=== PATIENT | male | born 1950 | race African-American/Black ===

== ENCOUNTER 2023-09-20 09:06 | Outpatient (CLI) | payer MEDICARE, BC, SELFPAY ==
--- NOTE | ~2023-09-20 | NM_ITS ---
EXAMINATION: NM vick stress w perfusion DATE: 09/20/2023 11:32 INDICATION: Angina pectoris TECHNIQUE: Rest images were obtained following intravenous administration of 9.9 mCi Tc99m tetrofosmi n (Myoview). The patient was infused intravenously with Lexiscan (Regadenoson). Then, 31.9 mCi Tc99m tetrofosmin (Myoview) was administered intravenously, and stress images were obtained. Data was recon structed into short axis and horizontal and vertical long axis SPECT images. Gated SPECT images were also obtained. COMPARISON: None. FINDINGS: There is no definite reversible or fixed perfusion abnormality to suggest ischemia or infar ction. There is normal left ventricular chamber size, wall motion and ejection fraction. Left ventr icular ejection fraction measures 62%. IMPRESSION: 1. Normal myocardial perfusion at rest and during stress. 2. Left ventricular ejection fraction measuring 62%. Reviewed, dictated and finalized at location A. NT [employer]GER
--- NOTE | 2023-09-20 09:21 | EST_ITS ---
Patient Info Name: Jesus Mendez Age: 73 years : 1950 Gender: Male Ht: 71 in Wt: 212 lbs BSA: 2.22 m2 HR: 75 bpm BP: 167 / 76 mmHg Heart Rhythm: Sinus Rhythm Exam Date: 09/20/2023 10:47 AM Exam Location: [facility] Patient Status: Outpatient Admit Date: 09/20/2023 Staff Ordering Physician: Jean Flores MD Attending Provider: Jean Flores MD Exercise Technologist: Rachelle Alicea CT Exercise Physician: Jason Pittman DO Exam Type: CA stress vick w NM Study Info Indications I20.8 - Other forms of angina pectoris A regadenoson stress test was performed. Summary 1. 1. Negative lexiscan stress test for ischemic ST changes by ECG criteria. 2. 2. Baseline hypertension. 3. 3. Nuclear scan to follow and will be reported separately. Please correlate with it. 4. 4. Patient informed of the above results. Protocol: Lexiscan Stress ECG Details Stage: REST Duration (min): 3 min : 18 sec HR (bpm): 77 SBP (mmHg): 167 DBP (mmHg): 76 Stage: REST Duration (min): 9 min : 20 sec HR (bpm): 75 SBP (mmHg): 167 DBP (mmHg): 76 Stage: STAGE 1 Duration (min): 0 min : 59 sec HR (bpm): 103 SBP (mmHg): 164 DBP (mmHg): 47 Stage: RECOVERY Duration (min): 1 min : 0 sec HR (bpm): 100 SBP (mmHg): 164 DBP (mmHg): 47 Stage: RECOVERY Duration (min): 2 min : 0 sec HR (bpm): 93 SBP (mmHg): 164 DBP (mmHg): 47 Stage: RECOVERY Duration (min): 3 min : 0 sec HR (bpm): 89 SBP (mmHg): 163 DBP (mmHg): 66 Stage: RECOVERY Duration (min): 3 min : 55 sec HR (bpm): 88 SBP (mmHg): 163 DBP (mmHg): 66 Rest HR: 75 bpm Peak HR: 105 bpm Rest Sys BP: 167 mmHg Peak Sys BP: 164 mmHg Max Pred HR: 148 bpm % Max Pred HR: 71 % Target HR: 126 bpm Max RPP: 17,220 bpm*mmHg Termination Reason: Completed protocol Cardiac Symptoms: Shortness of breath Total Time: 1 min : 0 sec Rest Parikh BP: 76 mmHg Peak Parikh BP: 47 mmHg Total Dose: 0.4 mg Resting ECG Sinus rhythm, ST-T wave abnormality in diffuse leads- consider ischemia. Stress ECG No ST changes. Arrhythmias None. Report Signatures
== END 2023-09-20 09:07 | disposition home or self-care (01) ==
LOC: ANHCARD 09:07
PROVIDERS: PCP Emergency Medicine; Visit Provider Emergency Medicine
DX: I20.89 Other forms of angina pectoris (principal); E11.9 Type 2 diabetes mellitus without complications; I10 Essential (primary) hypertension
CPT/HCPCS: 78452; 93017; A9502; J2785

== ENCOUNTER 2024-11-13 11:10 | Outpatient (CLI) | payer BC, MEDICARE, SELFPAY ==
--- OUTSIDE RECORDS SUMMARY | 2024-11-13 12:28 | XMS_ITS | Data Portability ---
Author Organization [facility], Main Office Address [address] [place] [address] Assessment No assessment recorded. Plan of Treatment Reminders Order Date Submit Date Provider Last Modified By Organization Details Last Modified Time Details Appointments None recorded. Lab hemoglobin A1C, fingerstick [address] Narc[address], [place], [address], 3 12:32:30 PSA, total, serum or plasma 2022 023 [email or web address] [facility], [facility] [address], [address], 3 08:14:58 hemoglobin A1C, fingerstick [address] Narciso [address]les, [place], [address], 3 12:27:17 CMP, serum or plasma 2022 023 [email or web address] [facility], [facility] [address], [address], 3 08:14:57 lipid panel, serum 2022 023 [email or web address] [facility], [facility] [address], [address], 3 08:14:58 microalbumi n, urine 2022 023 [email or web address] [facility], [facility] N[address] Olivia [address] [place] [address], [address], 3 08:14:58 TSH, ultra-sensi tive, serum 2022 023 [email or web address] [facility], [address] [facility] [address], [place], [address], 3 08:14:58 Referral None recorded. Procedures None recorded. Surgeries None recorded. Imaging None recorded. Medication Orders Ozempic 2 mg/dose (8 mg/3 mL) subcutaneou s pen injector 2022 023 [facility][id number], 2 [facility], [place], [place], [id number], 3 12:18:31 pravastatin 80 mg tablet [address] [id number], 2 [facility], [place], [place], [id number], 3 12:19:47 Ozempic 1 mg/dose (4 mg/3 mL) subcutaneou s pen injector 2022 023 [email or web address] 3 [facility] #[id number], 2 [facility], [place], [place], [id number], 3 12:20:51 Patient TargetsNo targets recorded. Patient InstructionsNo instructions recorded. Reason for Referral None Reported. Results Created Date Observation Date Name Description Value Unit Range Abnormal Flag Note LastModifiedBy Organization Detail LastModifiedTime 01/19/20 22 01/18/2022 hemog lobin A1C, finge rstic k HgbA1C 8.9 Not Available [facility] [address], [place], [address], 01/18/2022 12:38:26 04/26/20 22 04/26/2022 hemog lobin A1C, finge rstic k HgbA1C 8.4 Not Available [facility] [address], [place], [address], 04/26/2022 12:23:31 08/10/19 23 08/10/2022 hemog lobin A1C, finge rstic k HgbA1C 8.3% Not Available [facility] [address], [place], [address], 08/10/2022 06:12:38 11/11/19 23 11/10/2022 hemog lobin A1C, finge rstic k HgbA1C 7.6 Not Available [address]arc[address] A, [place], [address], 11/10/2022 12:20:24 02/23/20 23 02/23/2023 COMP. METAB OLIC PANEL (14) glucose 170 mg/dL 70-99 above high normal Not Available [facility] ([facility]) [address] [place], [address], 02/23/2023 09:44:57 02/23/20 23 02/23/2023 COMP. METAB OLIC PANEL (14) BUN 16 mg/dL 8-27 Not Available [facility] ([facility]) [address] [place], [address], 02/23/2023 09:44:57 02/23/20 23 02/23/2023 COMP. METAB OLIC PANEL (14) creatinine 1.01 mg/dL 0.76-1 .27 Not Available [facility] ([facility]) [address] [place], [address], 02/23/2023 09:44:57 02/23/20 23 02/23/2023 COMP. METAB OLIC PANEL (14) eGFR 80 mL/mi n/1.7 3 >59 Not Available [facility] ([facility]) [address] [facility] [place], [address], 02/23/2023 09:44:57 02/23/20 23 02/23/2023 COMP. METAB OLIC PANEL (14) BUN/creatini ne ratio 16 10-24 Not Available [facility] [address] [facility], [place], [address], 02/23/2023 09:44:57 02/23/20 23 02/23/2023 COMP. METAB OLIC PANEL (14) sodium 138 mmol/ L 134-14 4 Not Available [facility] ([facility]) [address] [facility] [place], [address], 02/23/2023 09:44:57 02/23/20 23 02/23/2023 COMP. METAB OLIC PANEL (14) potassium 3.9 mmol/ L 3.5-5. 2 Not Available [facility] ([facility]) [address] [facility], [place], [address], 02/23/2023 09:44:57 02/23/20 23 02/23/2023 COMP. METAB OLIC PANEL (14) chloride 102 mmol/ L 96-106 Not Available [facility] ([facility]) [address] [facility], [place], [address], 02/23/2023 09:44:57 02/23/20 23 02/23/2023 COMP. METAB OLIC PANEL (14) carbon dioxide, total 22 mmol/ L 20-29 Not Available [facility] ([facility]) [address] [facility], [place], [address], 02/23/2023 09:44:57 02/23/20 23 02/23/2023 COMP. METAB OLIC PANEL (14) calcium 8.9 mg/dL 8.6-10 .2 Not Available [facility] ([facility]) [address] [facility] [place], [address], 02/23/2023 09:44:57 02/23/20 23 02/23/2023 COMP. METAB OLIC PANEL (14) protein, total 7.3 g/dL 6.0-8. 5 Not Available [facility] ([facility]) [address], [place], [address], 02/23/2023 09:44:57 02/23/20 23 02/23/2023 COMP. METAB OLIC PANEL (14) albumin 4.2 g/dL 3.8-4. 8 Not Available [facility] ([facility]) [address], [place], [address], 02/23/2023 09:44:57 02/23/20 23 02/23/2023 COMP. METAB OLIC PANEL (14) globulin, total 3.1 g/dL 1.5-4. 5 Not Available [facility] ([facility]) [address] [facility] [place], [address], 02/23/2023 09:44:57 02/23/20 23 02/23/2023 COMP. METAB OLIC PANEL (14) A/G ratio 1.4 1.2-2. 2 Not Available [facility] ([facility]) [address] [facility], [place], [address], 02/23/2023 09:44:57 02/23/20 23 02/23/2023 COMP. METAB OLIC PANEL (14) bilirubin, total 0.5 mg/dL 0.0-1. 2 Not Available [facility] ([facility]) [address] [facility], [place], [address], 02/23/2023 09:44:57 02/23/20 23 02/23/2023 COMP. METAB OLIC PANEL (14) alkaline phosphatase 99 IU/L 44-121 Not Available [facility] [address] [facility], [place], [address], 02/23/2023 09:44:57 02/23/20 23 02/23/2023 COMP. METAB OLIC PANEL (14) AST (SGOT) 25 IU/L 0-40 Not Available [facility] ([facility] [address] [place], [address], 02/23/2023 09:44:57 02/23/20 23 02/23/2023 COMP. METAB OLIC PANEL (14) ALT (SGPT) 19 IU/L 0-44 Not Available [facility] ([facility]) [address] [place], [address], 02/23/2023 09:44:57 02/23/20 23 02/23/2023 LIPID PANEL cholesterol, total 214 mg/dL 100-19 9 above high normal Not Available [facility] ([facility]) [address] [place], [address], 02/23/2023 09:44:58 02/23/20 23 02/23/2023 LIPID PANEL triglyceride s 137 mg/dL 0-149 Not Available [facility] [address] [place], [address], 02/23/2023 09:44:58 02/23/20 23 02/23/2023 LIPID PANEL HDL cholesterol 47 mg/dL >39 Not Available [facility] [address] [place], [address], 02/23/2023 09:44:58 02/23/20 23 02/23/2023 LIPID PANEL VLDL cholesterol heather 25 mg/dL 5-40 Not Available [facility] [address] [place], [address], 02/23/2023 09:44:58 02/23/20 23 02/23/2023 LIPID PANEL LDL chol calc (nih) 142 mg/dL 0-99 above high normal Not Available [facility] ([facility]) [address] [place], [address], 02/23/2023 09:44:58 02/23/2002/23/2023 LIPID PANEL comment: NAPPER GRINDER Not Available [facility] ([facility]) [address] [facility], [place], [address], 02/23/2023 09:44:58 02/23/2002/23/2023 TSH TSH 4.640 uIU/m L 0.450- 4.500 above high normal Not Available [facility] ([facility]) [address] [facility], [place], [address], 02/23/2023 09:44:59 02/23/2002/23/2023 PROST ATE-S PECIF IC AG prostate specific Ag 3.1 NG/mL 0.0-4. 0 Sarah ECLIA metho dolog y. Accor ding to the Ameri can [employer]rolo g[employer] Ass[employer] iatio n, Serum PSA shoul d decre ase and remai n at undet ectab le level s after radic al prost atect patrick. The AUA defin es bioch emica l recur rence as an initi al PSA value 0.2 ng/mL or great er follo wed by a subse quent confi rmato ry PSA value 0.2 ng/mL or great er. Value s obtai efra with diffe rent assay metho ds or kits canno t be used inter pineda eably . Resul ts canno t be inter prete d as absol [place] evide nce of the prese nce or absen ce of timur carr se. Not Available [facility] ([facility]) [address] [facility], [place], [address], 02/23/2023 09:45:00 02/23/2002/23/2023 ALBUM IN, RANDO M URINE albumin, urine 26.4 ug/mL not estab. Not Available [facility] ([facility]) [address] [facility], [place], [address], 02/23/2023 09:45:00 02/24/2002/23/2023 hemog lobin A1C, finge rstic k HgbA1C 7.6 Not Available [address] [place], [place], [address], 02/23/2023 12:13:36 Result Notes None recorded. Problems Name Problem SNOMED Code Status Onset Date Resolution Date Notes Provider Name and Address Organization Details Recorded Time Type 2 diabetes mellitus without complication 243628827 Active 2022 Lucinda De La Torre MD [address], [address], [place], [address] , [employer] [facility] [employer] [facility] 3 12:20:21 Hypothyroidis m 87545263 Active 2022 Lucinda De La Torre MD [address], [address], [place], [address] , [facility] [employer] [facility] 3 12:26:57 Folic acid deficiency 340356180 Active 2022 Lucinda De La Torre MD [address], [facility] [address], [place], [address] , [employer] [facility] [employer] [facility] 3 19:41:36 Essential hypertension 19537250 Active 2022 Lucinda De La Torre MD [address], [address], [place], [address] , [employer] [facility] [employer] [facility] 3 13:01:43 Pruritic disorder 479533154 Active 2022 Lucinda De La Torre MD [address], [address], [place], [address] , [employer] [facility] [employer] [facility] 3 13:24:04 Backache 769178259 Active 2018 Not Available [facility] 3 03:05:48 Hypertensive disorder 42703504 Active 2018 Not Available [facility] 3 03:05:48 Diabetes mellitus 34707333 Active 2018 Not Available [facility] 3 03:05:48 Uncontrolled type 2 diabetes mellitus 687386396 Active 2022 Lucinda De La Torre MD [address], [address], [place], [address] , [facility] 3 12:13:27 Hyperlipidemi a 89408430 Active 2022 Lucinda De La Torre MD [address], [address], [place], [address] , [facility] 3 12:18:37 Edema of foot 197545413 Active 2022 Lucinda De La Torre MD [address] [facility], [facility] [address], [place], [address] , [facility] 3 06:07:47 Problem Notes None recorded. Medical Equipment None Reported. Medications Name Sig Start Date Stop Date Status Note LastModified by Organization Details LastModified Time cyclobenzap rine 10 mg tablet TAKE 1 TABLET BY MOUTH EVERY 8 HOURS active Not Available Not Available No t Available carvedilol 25 mg tablet TAKE 1 TABLET BY MOUTH TWICE DAILY WITH THE MORNING AND EVENING MEAL active Not Available Not Available No t Available carvedilol 6.25 mg tablet TK 1 T PO BID active Not Available Not Available No t Available pravastatin 40 mg tablet TAKE 1 TABLET BY MOUTH EVERY DAY active Not Available Not Available No t Available benzonatate 200 mg capsule TK 1 C PO TID PRF COUGH active Not Available Not Available No t Available atovaquone 250 mg-proguani l 100 mg tablet TAKE 1 TABLET BY MOUTH EVERY DAY 2 DAYS PRIOR TO TRAVEL AND DURING TRAVEL AND 7 DAYS AFTER TRAVEL active Not Available Not Available No t Available Zithromax Z-Wilman 250 mg tablet Take 2 TABLET EVERY DAY by oral route for 1 day. Than 1 tablet for 4 days 02/05 completed Not Available Not Available Not Available aspirin 81 mg tablet,hira yed release TK 1 T PO QD active Not Available Not Available No t Available guaifenesin 100 mg/5 mL oral liquid TK 5 ML PO Q 4 H PRF COUGH active Not Available Not Available No t Available triamcinolo ne acetonide 0.1 % topical cream active Not Available Not Available Not Available pravastatin 80 mg tablet TAKE 1 TABLET BY MOUTH EVERY DAY active Not Available Not Available No t Available [employer] Ultra Test strips USE TO TEST BLOOD SUGAR THREE TIMES DAILY active Not Available Not Available No t Available amlodipine 10 mg tablet TAKE 1 TABLET BY MOUTH EVERY DAY active Not Available Not Available No t Available hydralazine 100 mg tablet TK 1 T PO TID active Not Available Not Available No t Available ferrous sulfate 325 mg (65 mg iron) tablet TAKE 1 TABLET BY MOUTH EVERY DAY 11/10 completed Not Available Not Available Not Available metformin 1,000 mg tablet TAKE 1 TABLET BY MOUTH TWICE DAILY WITH THE MORNING AND EVENING MEAL active Not Available Not Available No t Available Cipro 500 mg tablet Take 1 tablet every 12 hours by oral route. 2022 active Not Available Not Available Not Avai lable folic acid 1 mg tablet TAKE 1 TABLET BY MOUTH EVERY DAY active Not Available Not Available No t Available hydrochloro thiazide 25 mg tablet TAKE 1 TABLET BY MOUTH EVERY DAY 02/05 completed Not Available Not Available Not Available ergocalcife rol (vitamin D2) 1,250 mcg (50,000 unit) capsule TK 1 C PO Q 7 DAYS active Not Available Not Available No t Available ibuprofen 600 mg tablet TAKE 1 TABLET BY MOUTH EVERY 6 HOURS NEEDED FOR PAIN. TAKE WITH FOOD. active Not Available Not Available No t Available albuterol sulfate HFA 90 mcg/actuati on aerosol inhaler INHALE 2 PUFFS BY MOUTH EVERY 4 HOURS NEEDED active Not Available Not Available No t Available ketoconazol e 2 % topical cream APPLY IN BETWEEN TOES UP TO TWICE A DAY active Not Available Not Available No t Available lisinopril 40 mg tablet TAKE 1 TABLET BY MOUTH EVERY DAY active Not Available Not Available No t Available doxycycline hyclate 100 mg tablet Take 1 tablet every day by oral route for 65 days. active Not Available Not Available No t Available levothyroxi ne 112 mcg tablet TAKE 1 TABLET BY MOUTH EVERY DAY active Not Available Not Available No t Available BD Ultra-Fine Mini Pen Needle 31 gauge x 3/16 USE TO NJECT NOVOLOG TWICE DAILY active Not Available Not Available No t Available Novofine Autocover 30 gauge x 1/3 needle USE WITH INSULIN active Not Available Not Available No t Available sildenafil (pulmonary hypertensio n) 20 mg tablet TAKE 1-5 TABLETS PO PRN active Not Available Not Available No t Available Symbicort 160 mcg-4.5 mcg/actuati on HFA aerosol inhaler active Not Available Not Available Not Available Lantus Solostar U-100 Insulin 100 unit/mL (3 mL) subcutaneou s pen ADMINISTE R 20 UNITS UNDER THE SKIN TWICE DAILY WITH THE MORNING AND EVENING MEAL active Not Available Not Available No t Available Humalog Mix 75-25 KwikPen U-100 insulin 100 unit/mL subcutaneou s pen INJECT 42 UNITS UNDER SKIN QAM AND 32 UNITS QPM active Not Available Not Available No t Available Humalog KwikPen (U-100) Insulin 100 unit/mL subcutaneou s ADMINISTE R 15 UNITS UNDER THE SKIN THREE TIMES DAILY 2022 active Not Available Not Available Not Avai lable Dulera 200 mcg-5 mcg/actuati on HFA aerosol inhaler INHALE 2 PUFFS BY MOUTH TWICE DAILY 01/18 completed Not Available Not Available Not Available Eliquis 5 mg tablet TAKE 1 TABLET BY MOUTH TWICE DAILY 02/05 completed Not Available Not Available Not Available Spiriva Respimat 2.5 mcg/actuati on solution for inhalation INL 2 PFS PO QD active Not Available Not Available No t Available Ozempic 0.25 mg or 0.5 mg (2 mg/1.5 mL) subcutaneou s pen injector Inject 0.5 mg every week by subcutane ous route. 11/10 completed Not Available Not Available Not Available OneTouch Ultra Blue Test Strip USE TO TEST BLOOD SUGAR THREE TIMES DAILY active Not Available Not Available No t Available Ozempic 1 mg/dose (4 mg/3 mL) subcutaneou s pen injector INJECT 1 MG UNDER SKIN EVERY WEEK 02/23 completed Not Available Not Available Not Available Semglee (insulin glargine-yf gn) Pen 100 unit/mL (3 mL) subcutaneou s ADMINISTE R 20 UNITS UNDER THE SKIN TWICE DAILY WITH THE MORNING AND EVENING MEAL 2022 active Not Available Not Available Not Avai lable Ozempic 2 mg/dose (8 mg/3 mL) subcutaneou s pen injector active Not Available Not Available Not Available Vitals Date Recorded Body height Body mass index (BMI) Body weight Body temperature Heart rate Oxygen saturation Oxygen saturation in Arterial blood by Pulse oximetry Systolic blood pressure Diastolic blood pressure Provider Name and Address Organization Details Last Updated DateTime 3 180.34 cm 30.4 kg/m2 61456.1 4 g 97.9 [degF] 79 /min 97 % 97 % 140 mm[Hg] 60 mm[Hg] MARCOS Chowdary [facility] DE [facility] 3 12:08:36 Date Recorded Body height Body mass index (BMI) Body weight Body temperature Heart rate Oxygen saturation Oxygen saturation in Arterial blood by Pulse oximetry Systolic blood pressure Diastolic blood pressure Provider Name and Address Organization Details Last Updated DateTime 3 180.34 cm 29.7 kg/m2 81116.1 7 g 97.7 [degF] 86 /min 97 % 97 % 160 mm[Hg] 72 mm[Hg] MARCOS Chowdary [facility] 3 12:03:47 Date Recorded Body mass index (BMI) Body height Oxygen saturation Oxygen saturation in Arterial blood by Pulse oximetry Heart rate Body temperature Body weight Systolic blood pressure Diastolic blood pressure Provider Name and Address Organization Details Last Updated DateTime 2 31 kg/m2 180.34 cm 96 % 96 % 87 /min 96.7 [degF] 131131. 51 g 128 mm[Hg] 64 mm[Hg] Not Available [facility] 3 03:02:54 Date Recorded Body mass index (BMI) Body height Oxygen saturation Oxygen saturation in Arterial blood by Pulse oximetry Heart rate Body temperature Body weight Systolic blood pressure Diastolic blood pressure Provider Name and Address Organization Details Last Updated DateTime 2 31 kg/m2 180.34 cm 97 % 97 % 75 /min 98.1 [degF] 857966. 51 g 148 mm[Hg] 70 mm[Hg] Not Available [facility] 3 03:02:54 Date Recorded Body mass index (BMI) Body height Oxygen saturation Oxygen saturation in Arterial blood by Pulse oximetry Heart rate Body temperature Body weight Systolic blood pressure Diastolic blood pressure Provider Name and Address Organization Details Last Updated DateTime 3 31.7 kg/m2 180.34 cm 96 % 96 % 81 /min 97.3 [degF] 962742. 47 g 142 mm[Hg] 70 mm[Hg] Not Available [facility] 3 03:02:54 Social History Question Answer Notes LastModified by Organizat ion Details LastModified Time Tobacco Smoking Status Former Smoker Not Available [facility] 09/29/2022 02:53:18 What Is Your Level Of Alcohol Consumption? Occasional [id number] Information not available 09/29/2022 In The 14 Days Before Symptom Onset, Have You Had Close Contact With A Laboratory-confir med COVID-19 While That Case Was Ill? No [id number] Information not available 09/29/2022 In The 14 Days Before Symptom Onset, Have You Had Close Contact With A Person Who Is Under Investigation For COVID-19 While That Person Was Ill? No [id number] Information not available 09/29/2022 How Much Tobacco Do You Smoke? 0.25 PPD [id number] Information not available 09/29/2022 How Many Years Have You Smoked Tobacco? 20 [id number] Information not available 09/29/2022 Sex: Unknown Functional Status None recorded. Mental Status None recorded. Family History Relationship Description Onset Age of this Age Resolved Age Notes LastModified by Organization Details LastModified Time Father Hypertensive disorder [id number] Not available 09/29/2022 03:02:46 Father Diabetes mellitus [id number] Not available 09/29/2022 03:02:46 Mother Hypertensive disorder [id number] Not available 09/29/2022 03:02:47 Medical History No medical history recorded. Past Encounters Encounter ID Performer Location Encounter Start Date Encounter Closed Date Diagnosis/Indication Diagnosis SNOMED-CT Code Diagnosis ICD10 Code Diagnosis Note [id number] [facility] [place] [address] 11/06/2020 00:00:00 11/06/2020 19:43:47 [id number] [facility] [place] [address] 02/05/2021 00:00:00 02/06/2021 06:29:09 [id number] [facility] [place] [address] 05/07/2021 00:00:00 05/07/2021 12:18:00 [id number] [facility] [place]y [place] [address] 07/15/2021 00:00:00 07/15/2021 20:25:16 [id number] [facility] [place] [address] [facility] [place] [address] 10/12/2021 00:00:00 10/12/2021 19:18:53 [id number] [facility] [place] [address] [facility] [place] [address] 01/18/2022 00:00:00 01/18/2022 20:02:45 [id number] [facility] [place] [address] [facility] [place] [address] 04/26/2022 00:00:00 04/26/2022 20:22:56 [id number] [facility] [place] [address] [place] [address] [place] [address] 08/09/2022 00:00:00 08/10/2022 06:14:14 [id number] Lucinda De La Torre MD [facility] [place] [address] [place] [address] y [place] [address] 11/10/2022 11:57:54 11/10/2022 12:35:38 Type 2 diabetes mellitus without complication 336124683 E11.9 A1C 7.6% need to increase ozempic taking 0.5 mg weekly will go up to 1 mg weekly. Screening for malignant neoplasm of prostate 907693830 Z12.5 Hypothyroidism 31780510 E03.9 [id number] Lucinda De La Torre MD [facility] Barbie lladdis [address] [place] [address] [place] [address] 02/23/2023 11:55:38 02/23/2023 12:21:33 Uncontrolled type 2 diabetes mellitus 781424116 E11.65 A1C is 7.6% will increase ozempic to 2 mg weekly F/u in 3 months. Hyperlipidemia 34793518 E78.5 Will increase pravastati n to 80 mg recheck lipids and CMP in 3 months. Edema of foot 646395723 R60.0 elevate feet and may need compressio n stockings. Health Concerns Section Related Observation LastModified by Organization Detai ls LastModified Time None Recorded Concern Status LastModified by Organization Details LastModified Time None Recorded Advance Directives Directive None Recorded Payers Encounter Date Sequence Insurance Name Policy Number Policy Yadav Covered Member ID Yadav Member ID Guarantor Name 11/10/2022 2 [place] [id number] 1 [place] 11/10/2022 1 [place] [id number] 5 Katarina E Asidi [id number] [place] [employer] 02/23/2023 2 [place] [id number] 1 [place] [employer] 02/23/2023 1 [place] [id number] Katarina E Asidi [id number] [place] As[employer] Notes Date Note Type Note Provider Name and Address Organization Details Recorded Time 11/10/2022 text/html Here today for A 1C check for DM. He is retired. Due for BW. No complaints today Every once in awhile feels like has to urinate again after finishes. No nocturia. Lucinda De La Torre MD [address], [place] [address], [place], [address], [employer] 11/10/2022 20:38:18 02/23/2023 text/html Here today for A 1C check for DM2. Having no complaints except feet get swelling and goes down mostly in am. No tingling or numbness. No other complaints. His cholesterol is still high will need to increase pravastatin to 80 mg. Lucinda De La Torre MD [address], [address], [place], [address], [employer] 02/24/2023 06:08:56
--- OUTSIDE RECORDS SUMMARY | 2024-11-13 12:28 | XMS_ITS | Clinical Summary ---
Author Organization [facility] Address [address] [address] Care Team Providers Care Fund Accountant Name Role Phone Lucinda De La Torre MD Primary Care Provider [phone] Source Comments [facility],non-owned Affiliates and Associated Physician Practices is amultiple site organization consisting of ambulatory clinics and hospital sitesin [place], [place], [place] and [place]. This disclosure is being madepursuant to the Care Everywhere program and may not contain all information available regarding this patient. Last updated 18.[facility] Allergies Active Allergy Reactions Criticality Noted Date Comments Brassica Oleracea Italica Vomiting Low 05/23/2020 Medications * Be aware that medications may not be up to date on this document. Alwaysverify current medications with the patient. levothyroxine (SYNTHROID) 112 MCG tablet Take 112 mcg by mouth daily before breakfast Active pravastatin (PRAVACHOL) 40 MG tablet Take 40 mg by mouth at bedtime Active metFORMIN (GLUCOPHAGE) 1000 MG tablet Take 1,000 mg by mouth 2 times daily with morning and evening meal Breakfast and dinner Active aspirin (ASPIRIN) 81 MG chew tablet Take 81 mg by mouth once daily Active triamcinolone acetonide (KENALOG) 0.1 % cream Apply to affected area 2 times daily 0 Active albuterol HFA (PROVENTIL;SABRINA TOLIN;PROAIR) 108 (90 Base) MCG/ACT inhaler Inhale 2 puffs by mouth every 4 hours as needed for Shortness of Breath or Wheezing 2 Inhaler 1 0 Active budesonide-for moterol (SYMBICORT) 160-4.5 MCG/ACT inhaler Inhale 2 puffs by mouth 2 times daily 1 Inhaler 2 0 Active tiotropium (SPIRIVA RESPIMAT) 2.5 MCG/ACT inhaler Inhale 2 puffs by mouth once daily 1 Inhaler 2 0 Active benzonatate (TESSALON) 200 MG capsule Take 1 capsule by mouth 3 times daily as needed for Cough 30 capsule 1 0 Active guaiFENesin (ROBITUSSIN) 100 MG/5ML solution Take 5 mL by mouth every 4 hours as needed for Cough 236 mL 1 0 Active polyethylene glycol 3350 (MIRALAX) 17 g packet Take 17 g by mouth once daily as needed for Constipation 0 Active ferrous sulfate 325 (65 FE) MG tablet Take 1 tablet by mouth once daily 100 tablet 0 Active insulin glargine (LANTUS) pen Inject 20 Units subcutaneously 2 times daily with morning and evening meal 6 Pen 1 0 Active insulin aspart (NOVOLOG) pen Inject 12 Units subcutaneously 3 times daily with meals 6 Pen 1 0 Active insulin pen needle (NOVOFINE 30) 30G X 8 MM needle 1 Each by Injection route as directed 90 Each 11 0 Active Active Problems Problem Noted Date Diagnosed Date Thrombocytopenia 05/21/2020 Normocytic anemia 05/21/2020 Deep vein thrombosis (DVT) of lower extremity DM (diabetes mellitus) 05/19/2020 HTN (hypertension) 05/19/2020 Hypothyroidism 05/19/2020 Acute respiratory distress s yndrome (ARDS) due to COVID-19 virus 05/17/2020 Resolved Problems Problem Noted Date Diagnosed Date Resolved Date COVID-19 05/17/2020 05/19/2020 Social History Tobacco Use Types Packs/Day Years Used Date Smoking Tobacco: Former Cigarettes Q uit: 1999 Smokeless Tobacco: Never Snuff Tobacco Cessation:Counseling Given: Yes Alcohol Use Standard Drinks/Week Comments Yes 0 (1 standard drink = 0.6 oz pur e alcohol) Sex and Gender Information Value Date Recorded Sex Assigned at Not on file Legal Sex Male 6:20 AM [employer] [employer] Gender Identity Not on file Sexual Orientation Not on file Last Filed Vital Signs Vital Sign Reading Time Taken Comments Blood Pressure 143/65 04/25/2022 5:09 PM CDT Pulse 68 04/25/2022 5:09 PM CDT Temperature 36.7 C (98.1 F) 04/25/2022 5:09 PM CDT Respiratory Rate 18 04/25/2022 5:09 PM CDT Oxygen Saturation 97% 04/25/2022 5:09 PM CDT Inhaled Oxygen Concentration 21% 06/02/2020 3 :55 PM [facility] DELIVERY Weight 97.5 kg (215 lb) 04/25/2022 5:09 PM CDT Height 180.3 cm (5' 11 ) 04/25/2022 5:09 PM CDT Body Mass Index 29.99 04/25/2022 5:09 PM CDT Plan of Treatment Health Maintenance Due Date Last Done Comments COLOGUARD (AGES 45-75) - COLON CA SCREENING 1950 CT COLONOGRAPHY - COLON CA SCREENING 1950 FIT - COLON CA SCREENING 1950 FLEX SIG - COLON CA SCREENING 1950 HEPATITIS C SCREENING 07/30/1969 DTAP/TDAP/TD VACCINES (1 - Tdap) 1970 PNEUMOCOCCAL VACCINE 50+ (1 of 2 - PCV) 1970 ZOSTER VACCINE (1 of 2) 2001 Respiratory Syncytial Virus (RSV) Vaccine Pt: or over 60 yrs (1 - Risk 60-74 years 1-dose series) 2011 AAA SCREENING 2016 DIABETES RETINOPATHY SCREENING 05/19/2020 DIABETES-FOOT EXAM WITH MONOFILAMENT 05/19/2020 DIABETES-HGB A1C 11/18/2020 05/20/2020, , 03/03/2015, Additional history exists DIABETES-SERUM CREATININE 04/25/20232021, 06/03/2020, 06/02/2020, Additional history exists COLON MONITORING 07/19/2023 07/19/2013, 07/19/2013 COLONOSCOPY - COLON CA SCREENING 07/19/2023 07/19/2013, 07/19/2013 Colorectal Cancer Screening 07/19/2023 COVID-19 VACCINE (2 - 2023-25 season) 2024 10/31/2020 DEPRESSION SCREENING 08/01/2024 DIABETES - URINE PROTEIN SCREENING 08/01/2024 INFLUENZA VACCINE (Season Ended) 2025 HEPATITIS B VACCINE Aged Out No longe r eligible based on patient's age to complete this topic HIB VACCINE Aged Out No longer eligi ble based on patient's age to complete this topic HPV VACCINE Aged Out No longer eligi ble based on patient's age to complete this topic MENINGOCOCCAL (Group B) VACCINE SHARED DECISION-MAKING Aged Out No longer eligible based on patient's age to complete this topic MENINGOCOCCAL GROUPS A/C/Y/W VACCINE Aged Out No longer eligible based on patient's age to complete this topic Procedures Procedure Name Priority Date/Time Associated Diagnosis Comments COMPREHENSIVE METABOLIC PANEL STAT 04/25/2022 8:15 PM CDT HEMOGLOBIN A1C Routine 05/20/2020 3:44 AM CDT ENDOSCOPY, COLON, SCREENING Routine 07/19/2013 11:17 AM [facility] DELIVERY from Last 3 Months or Most Recently Relevant to Health Maintenance Results * (ABNORMAL) COMPREHENSIVE METABOLIC PANEL (04/25/2022 8:15 PM CDT) Glucose 152(H) 70 - 105 mg/dL 04/25/2022 8:45 PM CDT [facility] Sodium 139 136 - 145 mmol/L 04/25/2022 8:45 PM CDT [facility] Potassium 4.6 3.5 - 5.1 mmol/L 04/25/2022 8:45 PM CDT [facility] Chloride 103 98 - 107 mmol/L 04/25/2022 8:45 PM CDT [facility] CO2 26 23 - 31 mmol/L 04/25/2022 8:45 PM CDT [facility] Calcium 9.7 8.4 - 10.4 mg/dL 04/25/2022 8:45 PM CDT [facility] Anion Gap 10 8 - 18 mmol/L 04/25/2022 8:45 PM CDT [facility] BUN 19 8.4 - 25.7 mg/dL 04/25/2022 8:45 PM CDT [facility] Creatinine 1.06 0.72 - 1.25 mg/dL 04/25/2022 8:45 PM CDT [facility] Alkaline Phosphatase 87 40 - 150 U/L 04/25/2022 8:45 PM CDT [facility] ALT 18 0 - 61 U/L 04/25/2022 8:45 PM CDT [facility] AST 22 5 - 34 U/L 04/25/2022 8:45 PM CDT [facility] Protein Total 7.8 6.4 - 8.3 gm/dL 04/25/2022 8:45 PM CDT [facility] Albumin 4.2 3.2 - 4.6 gm/dL 04/25/2022 8:45 PM CDT [facility] Bilirubin Total 0.4 0.2 - 1.2 mg/dL 04/25/2022 8:45 PM CDT [facility] eGFR by CKD-EPI 75(L) >=90 mL/min/1.7 3 m2 04/25/2022 8:45 PM CDT [facility] Blood BLOOD SPECIMEN / Unknown Venipuncture / Unknown 04/25/2022 8:15 PM CDT 04/25/2022 8:26 PM CDT Monty Blevins TROUSSEAU CONSULTANT-RESOURCE EFFICIENCY MANAGER LAB - CHEMISTRY ORDERAB LES Final Result [facility] [address] [place] [address] * (ABNORMAL) HEMOGLOBIN A1C (05/20/2020 3:44 AM CDT) Pathologist [facility] Hemoglobin A1c 10.0(H) 4.2 - 5.6 % 05/20/2020 4:15 AM CDT [facility] Estimated Average Glucose 240 mg/dL 05/20/2020 4:15 AM CDT [facility] Blood BLOOD SPECIMEN / Unknown Venipuncture / Unknown 05/20/2020 3:44 AM CDT 05/20/2020 3:55 AM CDT Narrative [facility] - 05/20/2020 4:15 AM CDT The following cutoff levels are recommended by [employer]. A1c > 6.5% : considered as diabetes if two separate tests >6.5% or in an appropriate clinical setting. A1c 5.7% - 6.4% : considered as prediabetes (suggest increased risk for diabetes and cardiovascular disease) Control target level: Should be individualized. < 7 for general (non-) , < 8% less stringent goal, < 6.5 more stringent goal. Hemoglobin A1c measurements are used as an aid in the diagnosis of diabetic mellitus, as an aid to identify patients who may be at the risk for developing diabetic mellitus, and for the monitoring long-term blood glucose control in individuals with diabetes mellitus. This test should not replace glucose testing for patients with Type 1 diabetes, pediatric patients, or women. Falsely low HbA1c results may be observed in patients with clinical conditions that shorten erythrocyte life span or decrease mean erythrocyte age such as the presence of unstable hemoglobin variants, elevated hemoglobin F level or other causes of hemolytic anemia . HbA1c may not accurately reflect glycemic control when clinical conditions that affect erythrocyte survival are present. Severe Iron deficiency anemia may yield falsely high results. Hemoglobin A1c assay should not be used to diagnose or monitor diabetes in patients with malignancy, recent blood transfusion, chronic kidney or liver disease. This method may yield falsely low results when hemoglobin (HbF) exceeds 5% in the specimen. us Hugh Avery MD LAB - CHEMISTRY ORDERABLES Final Result [facility] [address] [place] [address] * ENDOSCOPY, COLON, SCREENING (07/19/2013 11:17 AM [facility] [employer] DELIVERY) Report Endoscopy POC _ Patient Name: Jesus Mendez Procedure Date: 07/19/2013 11:17 AM Date of : 1950 Admit Type: Outpatient Age: 62 Gender: Male Attending MD: Sarkis Moreno MD _ Procedure: Colonoscopy Indications: Screening for colorectal malignant neoplasm Providers: Sarkis Moreno MD (Doctor), Lexi Simpson RN, Corinna Jerry RN Referring MD: Tristan Chicas MD (Referring MD) Medicines: Monitored Anesthesia Care Complications: No immediate complications. _ Procedure: Pre-Anesthesia Assessment: - Prior to the procedure, a History and Physical was performed, and patient medications and allergies were reviewed. The patient is competent. The risks and benefits of the procedure and the sedation options and risks were discussed with the patient. All questions were answered and informed consent was obtained. Patient identification and proposed procedure were verified by the physician, the nurse, the sanitarian aide and the fingerprint technician in the endoscopy suite. Mental Status Examination: alert and oriented. Airway Examination: normal oropharyngeal airway and neck mobility. Respiratory Examination: clear to auscultation. CV Examination: normal. Prophylactic Antibiotics: The patient does not require prophylactic antibiotics. Prior Anticoagulants: The patient has taken no previous anticoagulant or antiplatelet agents. ASA Grade Assessment: II - A patient with mild systemic disease. After reviewing the risks and benefits, the patient was deemed in satisfactory condition to undergo the procedure. The anesthesia plan was to use general anesthesia. Immediately prior to administration of medications, the patient was re-assessed for adequacy to receive sedatives. The heart rate, respiratory rate, oxygen saturations, blood pressure, adequacy of pulmonary ventilation, and response to care were monitored throughout the procedure. The physical status of the patient was re-assessed after the procedure. After I obtained informed consent, the scope was passed under direct vision. Throughout the procedure, the patient's blood pressure, pulse, and oxygen saturations were monitored continuously. The Colonoscope was introduced through the anus and advanced to the terminal ileum, with identification of the appendiceal orifice and IC valve. The colonoscopy was performed without difficulty. The patient tolerated the procedure well. The quality of the bowel preparation was good. Impression: - The entire examined colon is normal. Findings: The perianal and digital rectal examinations were normal. The exam was otherwise without abnormality on direct and retroflexion views. _ Recommendation: - High fiber diet. - Repeat colonoscopy in 10 years for surveillance. Procedure Code(s): --- Professional --- G0121, Colorectal cancer screening; colonoscopy on individual not meeting criteria for high risk --- Technical --- G0121, Colorectal cancer screening; colonoscopy on individual not meeting criteria for high risk Diagnosis Code(s): --- Professional --- V76.51, Special screening for malignant neoplasms of colon 562.10, Diverticulosis of colon (without mention of hemorrhage) --- Technical --- V76.51, Special screening for malignant neoplasms of colon 562.10, Diverticulosis of colon (without mention of hemorrhage) CPT (R) 2012 [employer]. All Rights Reserved. The codes documented in this report are preliminary and upon clinical coder review may be revised to meet current compliance requirements. _ Sarkis Moreno MD 07/19/2013 11:52 AM This report has been signed electronically. Number of Addenda: 0 Note Initiated On: 07/19/2013 11:17 AM [facility] 07/19/2013 11:1 7 AM [facility] DELIVERY Narrative [facility] - 07/19/2013 11:53 AM [facility] DELIVERY Procedure Note Sarkis Moreno MD - 07/19/2013 11:53 AM CST us Sarkis Moreno MD GI PROCEDURE ORDERABLES Edited [facility] from Last 3 Months or Most Recently Relevant to Health Maintenance Insurance [employer] [facility] [employer] [employer] ANTHEM ANTHEM Advance Directives * Full Code (Latest Code Status on File) Date Activated Date Inactivated Comments 05/18/2020 1:05 PM 06/03/2020 2:39 PM Care Teams Fund Accountant Relationship Specialty Start Date End Date Lucinda De La Torre MD [address] [place] [address] [address] [place] [address] PCP - General Family Medicine 05/19/20
--- OUTSIDE RECORDS SUMMARY | 2024-11-13 12:28 | XMS_ITS | CONTINUITY OF CARE DOCUMENT ---
Author Name gary vega Address Unknown Organization [facility] Address [id number] [place] [address] [address] [place] [address] Phone [phone] Care Team Providers Care Concrete Building Assembler Name Role Phone Albina BRUNSON, Reagan Unavailable [phone] LYLE BRUNSON, RUNDA Unavailable LYLE BRUNSON, RUNDA Unavailable PROBLEMS Condition Status Date Provider Notes Family History of Hypertension: active Nannette Montemayor MD Family History of Hypertension: active Nannette Montemayor MD Cardiovascular screening active Reagan mckee MD Chest pain active Reagan Montemayor MD Shortness of breath active Reagan Montemayor MD HTN essential active Reagan Montemayor MD Hyperlipidemia active Reagan Montemayor MD Diabetes mellitus active Reagan Montemayor MD Hypothyroidism active Reagan Montemayor MD Abnormal EKG active Reagan Montemayor MD Abnormal nuclear stress test active Reagan jin MD CAD active Reagan Montemayor MD ENCOUNTERS Date Type Provider Location Encounter Diag nosis 3 - 3 In-person encounter Office Visit Reagan Montemayor MD [facility] CAD 1 - 1 In-person encounter Office Visit Reagan Montemayor MD [facility] Abnormal nuclear stress test 9 - 1 In-person encounter Office Visit Reagan Montemayor MD [facility] Family History of Hypertension:Family History of Hypertension:Cardiovascular screeningChest painShortness of breathHTN essentialHyperlipidemiaDiabetes mellitusHypothyroidismAbnormal EKG VITAL SIGNS Date Observation Value Provider Body Mass Index (Ratio) 31.38 kg/m2 Nannette Montemayor MD pulse rate 88 /min Susan felder blood pressure, cuff size regular Cy severo Valenzuela blood pressure, diastolic 70 mm[Hg] Cy severo Valenzuela blood pressure, systolic 150 mm[Hg] Dolly marrufo Valenzuela oxygen saturation, oximetry 98 % Susan Valenzuela respiratory rate E&M 16 /min Susan Valenzuela weight E&M 225 [lb_av] Susan felder height E&M 71 [in_i] Susan Ferrara Body Mass Index (Ratio) 30.96 kg/m2 Nannette Montemayor MD blood pressure, diastolic 72 mm[Hg] Kd Sosa blood pressure, systolic 120 mm[Hg] Nikhil Sosa oxygen saturation, oximetry 98 % Mely Sosa respiratory rate E&M 17 /min Mely Sosa pulse rate 93 /min Mely Sosa blood pressure, cuff size regular Kd Sosa weight E&M 222 [lb_av] Mely Sosa height E&M 71 [in_i] Mely Jassoby Body Mass Index (Ratio) 30.82 kg/m2 Nannette Montemayor MD blood pressure, cuff size large Cr antoine Wilkerson blood pressure, diastolic 92 mm[Hg] Cr antoine Wilkerson blood pressure, systolic 182 mm[Hg] Cry stabradford Wilkerson oxygen saturation, oximetry 98 % Paradise Wilkerson respiratory rate E&M 17 /min Paradise Wilkerson pulse rate 73 /min Paradise forte blood pressure, resting Yes Lia scout Wilkerson height E&M 71 [in_i] Paradise forte weight E&M 221 [lb_av] Paradise forte ALLERGIES No Known Drug Allergies RESULTS Date Observation Value Provider Reference Range Interpretation Location 2 prothrombin time (patient) 10.6 s [facility] 9.1-12.0 2 international normalized ratio (INR) 1.0 [facility] 0.8-1.2 2 lipoprotein, beta, serum, point, quantitative, calculated 97 mg/dL [facility] 0-99 2 very low density lipoproteins 16 mg/dL [facility] 5-40 2 HDL cholesterol, serum 46 mg/dL [facility] >39 2 triglyceride, serum, random 81 mg/dL [facility] 0-149 2 cholesterol, serum 159 mg/dL [facility] 321-274 9590/10/1 2 calcium, serum 9.1 mg/dL [facility] 8.6-10.2 2 carbon dioxide, venous blood 25 mmol/L [facility] 20-29 2 chloride, serum 105 mmol/L [facility] 96-106 2 potassium, serum 4.2 mmol/L [facility] 3.5-5.2 2 sodium, serum 142 mmol/L [facility] [phone]/10/1 2 urea nitrogen/creatinin e ratio, serum 19 [facility] 10-24 2 eGFR if 109 mL/min/{1. 73_m2} [facility] >59 2 eGFR if not 94 mL/min/{1. 73_m2} [facility] >59 2 creatinine, serum 0.77 mg/dL [facility] 0.76-1.27 2 urea nitrogen, blood 15 mg/dL [facility] 8-27 2 blood glucose, random 121 mg/dL [facility] 65-99 High 2 basophil count, absolute 0.0 x10E3/uL [facility] 0.0-0.2 2 Eosinophil Absolute Count 0.1 X10E3/UL [facility] 0.0-0.4 2 monocyte count, blood, automated 0.3 X10E3/UL [facility] 0.1-0.9 2 lymphocyte count, blood, automated 1.7 X10E3/UL [facility] 0.7-3.1 2 Absolute Neutrophils 1.6 X10E3/UL [facility] 1.4-7.0 2 basophils as percent of blood leukocytes 0 % [facility] Not Estab. 2 eosinophils as percent of blood leukocytes 2 % [facility] Not Estab. 2 monocytes as percent of blood leukocytes 8 % [facility] Not Estab. 2 lymphocytes as percent of blood leukocytes 47 % [facility] Not Estab. 2 neutrophils as percent of blood leukocytes 43 % [facility] Not Estab. 2 platelet count 176 X10E3/UL [facility] [phone]/10/1 2 red blood cell distribution width 13.2 % [facility] 12.3-15.4 2 mean corpuscular hemoglobin concentration, RBC 33.3 G/DL [facility] 31.5-35.7 2 mean corpuscular hemoglobin, RBC 29.5 pg [facility] 26.6-33.0 2 mean corpuscular volume, RBC 88 fL [facility] 79-97 2 hematocrit, blood 36.6 % [facility] 37.5-51.0 Low 2 hemoglobin, blood 12.2 g/dL [facility] 13.0-17.7 Low 2 erythrocyte (RBC) count 4.14 X10E6/UL [facility] 4.14-5.80 2 leukocyte count, blood 3.7 X10E3/UL [facility] 3.4-10.8 HISTORY OF MEDICATION USE Medication Status Instructions Dates Provider Indications Com ments ASPIRIN EC 81 MG ORAL TABLET DELAYED RELEASE active Take one tablet daily Urvashi Larry RN CARVEDILOL 6.25 MG ORAL TABLET active Take one tablet twice daily Urvashi Larry RN PRAVASTATIN SODIUM TABLET active take one tablet by mouth once daily Paradise Wilkerson LEVOTHYROXINE SODIUM TABLET active take one tablet by mouth once daily Paradise Wilkerson HUMALOG MIX 75/25 KWIKPEN SUSPENSION PEN-INJECTOR active inject 40 units inthe morning and 30 unit in the evening Paradise Wilkerson METFORMIN HCL 500 MG ORAL TABLET active take one tablet by mouth twice daily Paradise Wilkerson LISINOPRIL 10 MG ORAL TABLET active take one tablet by mouth twice daily Paradise Wilkerson SOCIAL HISTORY Date Observation Value Provider number of grandchildren Reagan Montemayor MD U kiana Montemayor MD drug use no Reagan Montemayor MD alcohol use, average drinks per day social Reagan Montemayor MD alcohol use yes Reagan Montemayor MD smoking status Former smoker Reagan Montemayor MD social history E&M S moking History: Agata capps is a former smoker. Reagan Montemayor MD social history reviewed E&M revi ewed - no changes required Reagan Montemayor MD smoking, year quit 1999 Susan stein number of years as a smoker 20 a Susan Valenzuela smoking history, total pack/day 1 Susan Valenzuela cigarette use yes Susan cornelius social history E&M S moking History: Agata capps is a former smoker. Reagan Montemayor MD social history reviewed E&M revi ewed - no changes required Reagan Montemayor MD smoking, year quit 1999 Mely sharma number of years as a smoker 20 a Mely Sosa smoking history, total pack/day 1 Mely Sosa cigarette use yes Mely Sosa smoking status Former smoker Mely Sosa drug use no Reagan Montemayor MD alcohol use, average drinks per day social Reagan Montemayor MD alcohol use yes Reagan Montemayor MD social history E&M S moking History: Agata capps is a former smoker. Reagan Montemayor MD social history reviewed E&M revi ewed - no changes required Reagan Montemayor MD number of years as a smoker 20 a Paradise Wilkerson smoking, year quit 1999 Paradise santillan smoking history, total pack/day 1 Paradise Wilkerson cigarette use yes Paradise Echols ms smoking status Former smoker Reagan Montemayor MD FAMILY HISTORY Family Member Condition Father Family History of Hy pertension: Mother Family History of Hy pertension: Father Family History of Di abetes: INSURANCE PROVIDERS Payer name Policy type / Coverage type [employer] [employer] ID [id number] PAY [id number] ADVANCE DIRECTIVES Name Date DISCUSSED - NO DECISION MADE TREATMENT PLAN Date Name Performer Cardiology follow up :Per PCP. Jessie Montemayor MD Cardiology follow up : H is updated medication list for this problem includes: Pravastatin Sodium Tablet ..... Take one tablet by mouth once daily Reagan Montemayor MD Cardiology follow up : B P today: 150/70 P rior BP: 120/72 (05/11/2019) Labs Reviewed: C reat: 0.77 (05/12/2019) C hol: 159 (05/12/2019) HDL: 46 (05/12/2019) Reagan Montemayor MD Cardiology follow up :No recurre nce. Reagan Montemayor MD Cardiology follow up :s/p cardiac cath that showed 50-60% narrowing of the proximal circ. Will treat this medically at this time. Reagan Montemayor MD Cardiology:Per PCP Reagan Montemayor MD Cardiology: H is updated medication list for this problem includes: Pravastatin Sodium Tablet ..... Take one tablet by mouth once daily Reagan Montemayor MD Cardiology: B P today: 120/72 P rior BP: 182/92 (04/09/2019) Reagan Montemayor MD Cardiology:Nuclear s tress test on 05/01/19 showed: 1 . Abnormal myocardial perfusion imaging after vasodilator stress with Regadenoson. 2 . Normal left ventricular systolic function with a calculated ejection fraction of 55%. 3 . Myocardial scintigraphy demonstrates a small reversible inferior wall defect consistent with ischemia. Along with his symptoms of chest pain and other cardiac risk factors, I would recommend a cardiac cath. Reagan Montemayor MD Cardiology:As above Reagan Montemayor MD Cardiology:As above. Will like to rule out CAD as a cause for it. Reagan Montemayor MD Cardiology:This is a typical but he has multiple cardiac risk factors and his EKG is also abnormal, so I will do an echo and a stress test. Reagan Montemayor MD Cardiology:Per PCP Reagan Montemayor MD Cardiology: H is updated medication list for this problem includes: Pravastatin Sodium Tablet ..... Take one tablet by mouth once daily Reagan Montemayor MD Cardiology: B P today: 182/92 Reagan Montemayor MD Date Name PROTHROMBIN TIME WIT H INR LIPID PANEL CBC (INCLUDES DIFF/P LT) BASIC METABOLIC PANE L W/EGFR Stress Regadenoson Complete Echo HISTORY OF PROCEDURES Procedure Date Procedure Name Provider Procedure Notes S tatus Regadenoson, 4 units Reagan Montemayor MD completed Cardiolite, 2 units Reagan Montemayor MD completed SPECT Images Reagan Montemayor MD complet ed Stress EKG Reagan Montemayor MD completed EKG Reagan Montemayor MD completed
[2024-11-13 19:05] LABS: Creatinine Urine 244.5 mg/dL
[2024-11-13 19:10] LABS: MALB Creatinine Ratio 23.8 mg/g (0-30); Microalbumin Urine Random 58.3 mg/L (0-16.7); Prostate Specific Antigen 3.5 ng/mL (< OR = 4.0)
[2024-11-13 19:17] LABS: Thyroid Stimulating Hormone Reflex 0.291 uIU/mL (0.465-4.68)
[2024-11-13 19:22] LABS: Hemoglobin A1C 6.9 % (<5.7)
[2024-11-14 00:35] LABS: Free T4 Free Thyroxine Reflex 1.12 ng/dL (0.78-2.19)
[2024-11-14 01:18] LABS: Total Triiodothyronine (T3) 0.97 NG/ML (0.97-1.69)
== END 2024-11-13 11:11 | disposition home or self-care (01) ==
LOC: ANHGOSHLAB 11:11
PROVIDERS: PCP Family Medicine; Visit Provider Nurse Practitioner Family
DX: Z12.5 Encounter for screening for malignant neoplasm of prostate (principal); I10 Essential (primary) hypertension; E11.9 Type 2 diabetes mellitus without complications; E03.9 Hypothyroidism, unspecified
CPT/HCPCS: 36415; 82043; 83036; 84153; 84439; 84443; 84480; G0103